=== PATIENT | female | born 1940 | race Caucasian/White ===

== ENCOUNTER 2017-03-24 17:30 | Emergency (ER) | payer MEDICARE, OTHER, MEDICAID ==
[2017-03-24] MEDS ORDERED: Acetaminophen 325 MG Tab PO PRN (17:51)
[2017-03-24] MEDS ORDERED: Sodium Chloride 0.9% 10 ML Syringe FLUSH PRN (17:51)
--- NOTE | 2017-03-24 17:51 | EDM.PDOC ---
ED HPI GENERAL MEDICAL PROBLEM - General Chief Complaint: General Stated Complaint: leukocytosis, fatigue Time Seen by Provider: 03/24/17 17:30 Source of Information: Reports: Patient, Penitentiary Records (Limited), Old Records ([facility] EMR. No paper hospital chart available.) History Limitations: Reports: Altered Mental Status - History of Present Illness INITIAL COMMENTS - FREE TEXT/NARRATIVE: The patient was brought to the emergency room via transport vehicle from [facility] in [place] for nonspecific increased anorexia, confusion, sedation, etc. with decreased oral intake especially during the last 24-48 hours and symptoms starting about one week ago. Patient normally does not have excellent oral intake secondary to her previous CVA and chronic illnesses. Her regular provider, DAYTON Yu, from [facility] in [place], the daughter her CBC this morning with elevated WBCs 22.4 and no other blood available to be collected at the time. The patient is an extremely poor historian secondary to her baseline organic brain syndrome and current symptoms. No apparent recent history of chest pain, anginal complaints, fever, dyspnea, abdominal pain, etc. Onset: Gradual Duration: Week(s): (As above), Getting Worse Improves with: Reports: None Worsens with: Reports: None Context: Reports: Other (As above) Associated Symptoms: Reports: Confusion (Increased), Loss of Appetite, Malaise. Denies: Chest Pain, Cough, Diaphoresis, Fever/Chills, Nausea/Vomiting Treatments BUFFER COPPER: Reports: Other (see below) (None) - Related Data Allergies Allergy/AdvReac Type Severity Reaction Status Date / Time bupropion Allergy Cannot Verified 03/24/17 19:09 Remember [place] And Derivatives Allergy unknown Verified 03/24/17 19:09 clindamycin HCl Allergy Cannot Verified 03/24/17 19:09 [From Cleocin] Remember clindamycin palmitate HCl Allergy Cannot Verified 03/24/17 19:09 [From Cleocin] Remember clindamycin phosphate Allergy Cannot Verified 03/24/17 19:09 [From Cleocin] Remember erythromycin base Allergy Hives Verified 03/24/17 19:09 [Erythromycin Base] levodopa Allergy unknown Verified 03/24/17 19:09 levofloxacin [From Levaquin] Allergy Rash Verified 03/24/17 19:09 nitrofurantoin Allergy Cannot Verified 03/24/17 19:09 macrocrystalline Remember [From Macrodantin] Penicillins Allergy Hives Verified 03/24/17 19:09 Phenothiazines Allergy Cannot Verified 03/24/17 19:09 Remember rice Allergy unknown Verified 03/24/17 19:09 spinach Allergy unknown Verified 03/24/17 19:09 tetracycline [Tetracycline] Allergy Rash Verified 03/24/17 19:09 Home Meds: Home Meds Folic Acid/Vitamin B Comp W-C [Folbee Plus] 1 tab PO DAILY@99901/09/14 [ History] traZODone 50 mg PO BEDTIME 01/09/14 [History] Acetaminophen [Tylenol Extra Strength] 1,000 mg PO TID@,,12/21/15 [ History] Albuterol/Ipratropium [DuoNeb 3.0-0.5 MG/3 ML] 3 ml INH Q4HR PRN 12/21/15 [ History] Aspirin [Halfprin] 81 mg PO DAILY@99912/21/15 [History] Bisacodyl [Dulcolax] 5 mg PO DAILY PRN 12/21/15 [History] Bisacodyl [Dulcolax] 10 mg RECTAL DAILY PRN 12/21/15 [History] DULoxetine [Cymbalta] 30 mg PO DAILY@99912/21/15 [History] Docusate Sodium/Sennosides [Senna Plus] 1 tab PO BID@999,199912/21/15 [History ] Fluticasone Propionate [Flonase] 2 spray NASBOTH DAILY@99912/21/15 [History] Linaclotide [Linzess] 145 mg PO DAILY@99912/21/15 [History] Magnesium Hydroxide [Milk of Magnesia] 30 ml PO DAILY PRN 12/21/15 [History] Methyl Salicylate/Menthol [Thera-Gesic Plus] 1 applic TOP ASDIRECTED PRN [History] Methyl Salicylate/Menthol [Thera-Gesic Plus] 1 applic TOP BID@999,1999 [History] Non-Formulary Medication [NF Drug] 1 unit PO ASDIRECTED PRN 12/21/15 [History] Omeprazole 20 mg PO DAILY@99912/21/15 [History] guaiFENesin/Dextromethorphan [Tussin Dm Syrup] 10 ml PO Q4HR PRN 12/21/15 [ History] Past Medical History HEENT History: Reports: Allergic Rhinitis, Hard of Hearing Cardiovascular History: Reports: Heart Murmur, Hypertension, PVD, Other (See Below) Other Cardiovascular History: Aortic valve stenosis and mitral valve insufficiency by clinical exam Respiratory History: Reports: Bronchitis, Recurrent, COPD, Other (See Below) Other Respiratory History: O2 dependent COPD Gastrointestinal History: Reports: Chronic Constipation, GERD, Irritable Bowel Syndrome, Other (See Below) Other Gastrointestinal History: Dysphagia Genitourinary History: Reports: Chronic Renal Insuffiency, Urinary Incontinence LMP (Approximate): Menopausal Musculoskeletal History: Reports: Arthritis, Back Pain, Chronic, Fracture, Fibromyalgia, Neck Pain, Chronic, Osteoarthritis, Osteoporosis, Other (See Below ). Denies: Amputation Other Musculoskeletal History: Left humeral fracture and left pelvic ring fracture on 01/06/14; rotator cuff tear, multiple vertebral body compression fractures including the thoracic region; ankle fracture? 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 Psychiatric History: Reports: Addiction, Anxiety, Depression, PTSD, Other (See Below) Other Psychiatric History: Previous history of alcohol abuse Endocrine/Metabolic History: Reports: Osteopenia, Osteoporosis, Vitamin D Deficiency Hematologic History: Reports: Anemia, B12 Deficiency, Other (See Below) Other Hematologic History: Thrombocytopenia Oncologic (Cancer) History: Reports: Lung, Other (See Below) Other Oncologic History: Left-sided lung cancer - Infectious Disease History Infectious Disease History: Reports: MRSA - Past Surgical History Head Surgeries/Procedures: Reports: None HEENT Surgical History: Reports: Adenoidectomy, Cataract Surgery, Oral Surgery, Tonsillectomy, Other (See Below) Other HEENT Surgeries/Procedures: Complete teeth extraction Respiratory Surgical History: Reports: Lung Biopsies, Thoracotomy, Other (See Below) Other Respiratory Surgeries/Procedures: Biopsy, bronchoscopy, and left upper lobe lung resection secondary to lung cancer GI Surgical History: Reports: Appendectomy, Cholecystectomy, Colonoscopy, Other (See Below) Other GI Surgeries/Procedures: Hemorrhoidectomy; Colonoscopy on 01/25/12; laparoscopic cholecystectomy; additional unknown abdominal surgery with large midline abdominal incision by clinical exam Female Surgical History: Reports: Tubal Ligation Musculoskeletal Surgical History: Reports: ORIF, Other (See Below) Other Musculoskeletal Surgeries/Procedures:: ORIF of open ankle fracture? Side - Past Imaging History Past Imaging History: Reports: CAT Scan (CT of the brain on 12/24/15 and 12/21/15 ; CT of the chest on 05/14/14), Ultrasound (Gallbladder ultrasound on 06/07/14), Venous Doppler (Bilateral venous Doppler studies of the lower extremities on ;) Social & Family History - Family History Family Medical History: Unobtainable - Tobacco Use Smoking Status *Q: Never Smoker Second Hand Smoke Exposure: No Second Hand Smoke Education Provided: No - Alcohol Use Alcohol Use History: Yes Days Per Week of Alcohol Use: 0 (Previous alcohol abuse history) Alcohol Use in Last Twelve Months: No - Recreational Drug Use Recreational Drug Use: No - Living Situation & Occupation Living situation: Reports: Extended Care Facility ([facility] in [place]) ED ROS GENERAL - Review of Systems Review Of Systems: ROS reveals no pertinent complaints other than HPI. ED EXAM, GENERAL - Physical Exam Exam: See Below Exam Limited By: Altered Mental Status General Appearance: No Apparent Distress, Lethargic (Mild) Nose: Normal Mucosa, No Blood, Clear Rhinorrhea Throat/Mouth: No Airway Compromise, Other (Dry oral mucosa). No: Normal Teeth ( Complete absent dentition), Dysphagia, Perioral Cyanosis Head: Atraumatic, Normocephalic. No: Facial Swelling, Facial Tenderness Neck: Supple, Non-Tender, Full Range of Motion, Carotid Bruit (Mild Bilateral carotid bruits versus transmitted heart sounds). No: Lymphadenopathy (L), Lymphadenopathy (R), Thyromegaly Respiratory/Chest: No Respiratory Distress, No Accessory Muscle Use, Chest Non- Tender, Decreased Breath Sounds (Significantly diminished breath sounds on left side), Rales (Mild bilateral basilar rales). No: Rhonchi, Wheezing, Pleural Rub , Retractions Cardiovascular: No Edema, No Gallop, No Rub, Tachycardia (Regular rhythm), Systolic Murmur (1/6 CARLIE at the aortic and mitral valves). No: Gallop/S3, Gallop/S4, Friction Rub Peripheral Pulses: 2+: Radial (L), Radial (R), Dorsalis Pedis (L), Dorsalis Pedis (R) GI/Abdominal: Normal Bowel Sounds, Soft, No Organomegaly, No Distention, No Abnormal Bruit, No Mass, Pelvis Stable, Tender (Possible mild suprapubic tenderness). No: Guarding, Rebound (Female) Exam: Deferred Rectal (Female) Exam: Deferred Back Exam: Decreased Range of Motion (Secondary to arthritis and previous CVA). No: CVA Tenderness (L), CVA Tenderness (R), Muscle Spasm, Paraspinal Tenderness, Vertebral Tenderness Extremities: Non-Tender, No Pedal Edema, Normal Capillary Refill, Limited Range of Motion (With significant contractures in the left arm and left leg). No: Pedal Edema, Jeannine's Sign Neurological: Confused (Somewhat increased by history as above), Other ( Negative Babinski's, complete neurological exam not possible, stable severe left hemiparesis) Psychiatric: Normal Affect, Normal Mood Skin Exam: No: Diaphoretic, Ecchymosis, Lymphangitis, Wound/Incision Lymphatic: No Adenopathy EKG INTERPRETATION EKG Date: 03/24/17 Time: 19:27 Rhythm: Other (Sinus tachycardia) Rate (Beats/Min): 113 [place]: Normal (Left versus neutral cardiac axis) P-Wave: Enlarged (Diffuse biphasic P waves) QRS: Normal (Yours interval of 0.07 seconds representing repolarization changes) ST-T: Normal QT: Normal VA/PQ Interval: 0.19 seconds with poor R-wave progression in the anterior leads Comparison: No Change (12/21/15) EKG Interpretation Comments: 1. No acute ischemic changes 2. Probable left atrial enlargement 3. Sinus tachycardia 4. Noisy baseline Course - Vital Signs Last Recorded V/S: Last Vital Signs Temp 37.2 C 03/24/17 19:30 Pulse 109 H 03/24/17 20:30 Resp 33 H 03/24/17 20:30 BP 124/60 03/24/17 20:30 Pulse Ox 93 L 03/24/17 20:30 Vital Signs - 24 hr 03/24/17 03/24/17 03/24/17 17:30 18:15 18:29 Temperature [ 36.8 C Temporal] Pulse, Peripheral [ Pulse Oximetry] Pulse, 78 114 H 113 H Peripheral [ Right Brachial] Respiratory 30 H 33 H 33 H Rate Blood Pressure 142/81 H 130/56 L 136/64 [Left Upper Arm ] O2 Sat by Pulse 88 L 88 L 90 L Oximetry 03/24/17 03/24/17 03/24/17 18:45 19:00 19:30 Temperature [ 37.2 C 37.2 C Temporal] Pulse, 115 H 111 H 112 H Peripheral [ Pulse Oximetry] Pulse, Peripheral [ Right Brachial] Respiratory 36 H 34 H 33 H Rate Blood Pressure 131/54 L 125/41 L 132/47 L [Left Upper Arm ] O2 Sat by Pulse 92 L 92 L 94 L Oximetry 03/24/17 03/24/17 20:00 20:30 Temperature [ Temporal] Pulse, 107 H 109 H Peripheral [ Pulse Oximetry] Pulse, Peripheral [ Right Brachial] Respiratory 33 H Rate Blood Pressure 118/67 124/60 [Left Upper Arm ] O2 Sat by Pulse 93 L Oximetry - Orders/Labs/Meds Orders: Active Orders 24 hr Category Date Time Status Cardiac Monitoring [RC] CONTINUOUS Care 03/24/17 17:54 Active Communication Order [RC] ROUTINE Care 03/24/17 17:54 Active EKG Documentation Completion [RC] ASDIRECTED Care 03/24/17 17:54 Active Oxygen Therapy, ED [RC] CONTINUOUS Care 03/24/17 17:54 Active Peripheral IV Care [RC] . DIRECTED Care 03/24/17 17:54 Active Pulse Oximetry [RC] CONTINUOUS Care 03/24/17 17:54 Active Up With Assistance [RC] ASDIRECTED Care 03/24/17 17:54 Active Nothing Per Oral Diet [DIET] Diet 03/24/17 Breakfast Active Chest 1V Frontal [CR] Stat Exams 03/24/17 17:54 Taken CULTURE BLOOD [BC] Stat Lab 03/24/17 19:01 Received CULTURE SPUTUM + SMEAR [RM] Urgent Lab 03/24/17 17:54 Uncollected CULTURE URINE [RM] Stat Lab 03/24/17 18:20 Received Acetaminophen [Tylenol] Med 03/24/17 17:51 Active 650 mg PO Q4H PRN Lactated Ringers [Ringers, Lactated] 1,000 ml Med 03/24/17 20:00 Active IV ASDIRECTED Sodium Chloride 0.9% [Saline Flush] Med 03/24/17 17:51 Active 10 ml FLUSH ASDIRECTED PRN cefTRIAXone [Rocephin] Med 03/24/17 18:22 Active 2 gm IVPUSH Q24H Blood Culture x2 Reflex Set [OM.PC] Stat Oth 03/24/17 17:54 Ordered Obtain Past Medical Record [OM.PC] Stat Oth 03/24/17 17:54 Active Peripheral IV Insertion Adult [OM.PC] Stat Oth 03/24/17 17:54 Ordered Resuscitation Status Routine Resus Stat 03/24/17 17:51 Ordered EKG 12 Lead [EK] Stat Ther 03/24/17 17:54 Ordered Medication Orders Acetaminophen (Tylenol) 650 mg PO Q4H PRN PRN Reason: Pain/Fever Ceftriaxone Sodium (Rocephin) 2 gm IVPUSH Q24H SUNNY Last Admin: 03/24/17 19:00 Dose: 2 gm Lactated Ringer's (Ringers, Lactated) 1,000 mls @ 100 mls/hr IV ASDIRECTED SUNNY Last Admin: 03/24/17 20:16 Dose: 100 mls/hr Sodium Chloride (Saline Flush) 10 ml FLUSH ASDIRECTED PRN PRN Reason: Keep Vein Open Labs: Laboratory Tests 03/24/17 03/24/17 03/24/17 Range/Units 18:00 18:00 18:15 D-Dimer, Quantitative 2030 H (0-400) ng/mL Sodium 144 D (136-145) mmol/L Potassium 3.9 (3.5-5.1) mmol/L Chloride 108 H (98-107) mmol/L Carbon Dioxide 23.9 (21.0-32.0) mmol/L BUN 26 H (7-18) mg/dL Creatinine 0.67 (0.51-1.17) mg/dL Est Cr Clr Drug Dosing 61.68 mL/min Estimated GFR (MDRD) > 60 mL/min Glucose 127 H (74-106) mg/dL Lactic Acid 3.4 H (0.4-2.0) mmol/L Calcium 10.3 H (8.5-10.1) mg/dL Magnesium 2.0 (1.8-2.4) mg/dL Total Bilirubin 0.6 (0.2-1.0) mg/dL AST 25 (15-37) U/L ALT 14 (12-78) U/L Alkaline Phosphatase 103 (46-116) IU/L Creatine Kinase 104 (26-308) U/L Creatine Kinase Index 2.0 (0.0-2.5) % CK-MB (CK-2) 2.10 (0.00-3.60) ng/mL Troponin I 0.029 (0.000-0.056) ng/mL NT-Pro-B Natriuret Pep 1516 H (0-125) pg/mL Total Protein 8.9 H (6.4-8.2) g/dL Albumin 3.0 L (3.4-5.0) g/dL TSH, Ultra Sensitive 0.432 (0.358-3.740) mIU/mL Specimen Type Urine Color Urine Appearance Urine pH (5.0-9.0) Ur Specific [place] (1.005-1.030) Urine Protein (NEGATIVE) mg/dL Urine Glucose (UA) (NEGATIVE) mg/dL Urine Ketones (NEGATIVE) mg/dL Urine Occult Blood (NEGATIVE) Urine Nitrite (NEGATIVE) Urine Bilirubin (NEGATIVE) Urine Urobilinogen (0.2-1.0) E.U./dL Ur Leukocyte Esterase (NEGATIVE) Urine RBC /HPF Urine WBC /HPF Ur Epithelial Cells /LPF Urine Bacteria (NONE TO FEW) /HPF 03/24/17 Range/Units 18:20 D-Dimer, Quantitative (0-400) ng/mL Sodium (136-145) mmol/L Potassium (3.5-5.1) mmol/L Chloride (98-107) mmol/L Carbon Dioxide (21.0-32.0) mmol/L BUN (7-18) mg/dL Creatinine (0.51-1.17) mg/dL Est Cr Clr Drug Dosing mL/min Estimated GFR (MDRD) mL/min Glucose (74-106) mg/dL Lactic Acid (0.4-2.0) mmol/L Calcium (8.5-10.1) mg/dL Magnesium (1.8-2.4) mg/dL Total Bilirubin (0.2-1.0) mg/dL AST (15-37) U/L ALT (12-78) U/L Alkaline Phosphatase (46-116) IU/L Creatine Kinase (26-308) U/L Creatine Kinase Index (0.0-2.5) % CK-MB (CK-2) (0.00-3.60) ng/mL Troponin I (0.000-0.056) ng/mL NT-Pro-B Natriuret Pep (0-125) pg/mL Total Protein (6.4-8.2) g/dL Albumin (3.4-5.0) g/dL TSH, Ultra Sensitive (0.358-3.740) mIU/mL Specimen Type Urin[place]ath Urine Color Dark yellow Urine Appearance Cloudy Urine pH 5.5 (5.0-9.0) Ur Specific [place] 1.025 (1.005-1.030) Urine Protein 100 H (NEGATIVE) mg/dL Urine Glucose (UA) Negative (NEGATIVE) mg/dL Urine Ketones Trace H (NEGATIVE) mg/dL Urine Occult Blood Small H (NEGATIVE) Urine Nitrite Negative (NEGATIVE) Urine Bilirubin Small H (NEGATIVE) Urine Urobilinogen 1.0 (0.2-1.0) E.U./dL Ur Leukocyte Esterase Negative (NEGATIVE) Urine RBC 0-5 /HPF Urine WBC 0-5 /HPF Ur Epithelial Cells Moderate H /LPF Urine Bacteria Many H (NONE TO FEW) /HPF Urine specimen set up for culture and sensitivity Blood culture 1 collected Meds: Medications Generic Name Dose Route Start Last Admin Trade Name Freq PRN Reason Stop Dose Admin Acetaminophen 650 mg 03/24/17 17:51 Tylenol PO Q4H PRN Pain/Fever Ceftriaxone Sodium 2 gm 03/24/17 18:22 03/24/17 19:00 Rocephin IVPUSH 2 gm Q24H SUNNY Administration Lactated Ringer's 1,000 mls @ 100 mls/hr 03/24/17 20:00 03/24/17 20:16 Ringers, Lactated IV 100 mls/hr ASDIRECTED SUNNY Administration Sodium Chloride 10 ml 03/24/17 17:51 Saline Flush FLUSH ASDIRECTED PRN Keep Vein Open Discontinued Medications Generic Name Dose Route Start Last Admin Trade Name Freq PRN Reason Stop Dose Admin Lactated Ringer's 1,000 mls @ 999 mls/hr 03/24/17 18:53 03/24/17 19:06 Ringers, Lactated IV 03/24/17 19:53 999 mls/hr .BOLUS ONE Administration - Radiology Interpretation Free Text/Narrative:: Warehouse Delivery Driver shows sinus tachycardia with average heart rates in the 110s with no ectopy or arrhythmia Chest x-ray, portable, shows moderate COPD changes with complete opacification of the left lung significantly worse from previous evaluations with status post left upper lobe resection and moderate prominence of the proximal aortic arch. No direct pneumothorax Departure - Departure Time of Disposition: 21:00 Disposition: DC/Tfer to Acute Hospital 02 Condition: Poor Clinical Impression: Dehydration, Organic brain syndrome, Need for comfort care, Dyslipidemia, Peptic reflux disease, Lactic acid blood increased, D-dimer, elevated, Hypoalbuminemia, Hypercalcemia, Hyperglycemia Leukocytosis Qualifiers: Leukocytosis type: bandemia Qualified Code(s): D72.825 - Bandemia CVA (cerebral vascular accident) Qualifiers: CVA mechanism: unspecified Qualified Code(s): I63.9 - Cerebral infarction, unspecified Osteoarthritis Qualifiers: Osteoarthritis location: multiple joints Osteoarthritis type: primary Qualified Code(s): M15.0 - Primary generalized (osteo)arthritis Hypertension Qualifiers: Hypertension type: essential hypertension Qualified Code(s): I10 - Essential ( primary) hypertension COPD (chronic obstructive pulmonary disease) Qualifiers: COPD type: emphysema Emphysema type: panlobular Qualified Code(s): J43.1 - Panlobular emphysema CHF (congestive heart failure) Qualifiers: Congestive heart failure type: unspecified congestive heart failure type Congestive heart failure chronicity: acute Qualified Code(s): I50.9 - Heart failure, unspecified - Discharge Information Referrals: Jamila Clemens NP [Primary Care Provider] - Forms: ED Department Discharge, Interfacility Transfer [facility] - Problem List & Annotations (1) Leukocytosis SNOMED Code(s): 294738315 Code(s): D72.829 - ELEVATED WHITE BLOOD CELL COUNT, UNSPECIFIED Status: Acute Priority: High Current Visit: Yes Onset Date: 03/24/17 Annotation/ Comment:: Leukocytosis with possibility of sepsis with IV Rocephin initiated in the emergency room. Note multiple allergies to antibiotics. Consider additional IV Flagyl therapy secondary to history of dysphagia, however no known aspiration. Only one blood culture was able to be obtained with difficult blood draw. Note complete left lung opacification with possibility of pneumonia versus large PE. Telephone consultation initially with the patient's brother and Matthew ROMERO, at 19:40 hours with various therapeutic options discussed. Subsequent telephone consultation at 19:[address] Whitman, hospitalist at [facility] in [place], who does accept the patient for direct admission, with no further treatment recommendations given. Some delay in patient transfer without sequelae secondary to ambulance availability. Ambulance transfer with television newscast director accompaniment. Prognosis extremely poor with consideration of initiation of hospice care depending on further workup, clinical course, etc. Qualifiers: Leukocytosis type: bandemia Qualified Code(s): D72.825 - Bandemia (2) D-dimer, elevated SNOMED Code(s): 323500637 Code(s): R79.89 - OTHER SPECIFIED ABNORMAL FINDINGS OF BLOOD CHEMISTRY Status: Acute Priority: High Current Visit: Yes Onset Date: 03/24/17 Annotation/Comment:: Initially elevated d-dimer elevation, however no direct clinical evidence of DVT or PE, however note complete opacification of her left lung, previous history of left upper pulmonary lobeectomy, and history of lung cancer. Poor IV access in our facility not amenable to CTA of the chest at this time (3) Lactic acid blood increased SNOMED Code(s): 1477653 Code(s): R79.89 - OTHER SPECIFIED ABNORMAL FINDINGS OF BLOOD CHEMISTRY Status: Acute Priority: High Current Visit: Yes Onset Date: 03/24/17 Annotation/Comment:: Possibility of sepsis either from pneumonia or urosepsis. Continue to observe mostly with serial lactic acid levels recommended as per standard protocol (4) Dehydration SNOMED Code(s): 85411167 Code(s): E86.0 - DEHYDRATION Status: Acute Priority: High Current Visit : Yes Onset Date: 03/24/17 Annotation/Comment:: Lactated Ringer's IV 500 mL bolus given in the emergency room with continuation of IV fluids at 100 mL per hour thereafter. (5) Need for comfort care SNOMED Code(s): 732826053 Code(s): BYS2884 - Status: Chronic Priority: Medium Current Visit: Yes Annotation/Comment:: Long-term prognosis poor. Patient's current condition is guarded. Continue comfort care (6) COPD (chronic obstructive pulmonary disease) SNOMED Code(s): 34030430 Code(s): J44.9 - CHRONIC OBSTRUCTIVE PULMONARY DISEASE, UNSPECIFIED Status : Chronic Priority: Medium Current Visit: Yes Annotation/Comment:: No significant wheezing or rhonchi on arrival. Note O2 dependent COPD Qualifiers: COPD type: emphysema Emphysema type: panlobular Qualified Code(s): J43.1 - Panlobular emphysema (7) CVA (cerebral vascular accident) SNOMED Code(s): 630436989 Code(s): I63.9 - CEREBRAL INFARCTION, UNSPECIFIED Status: Chronic Priority: Medium Current Visit: Yes Annotation/Comment:: Previous history of CVA with persistent left-sided hemiparesis, dysarthria, contractures, etc. No direct indication of significant change in her neurological status by history other than some possible mild lethargy secondary to current infection Qualifiers: CVA mechanism: unspecified Qualified Code(s): I63.9 - Cerebral infarction, unspecified (8) Dyslipidemia SNOMED Code(s): 494011734 Code(s): E78.5 - HYPERLIPIDEMIA, UNSPECIFIED Status: Chronic Priority: Medium Current Visit: Yes Annotation/Comment:: Not currently under therapy. Note comfort care. (9) Hypertension SNOMED Code(s): 91453223 Code(s): I10 - ESSENTIAL (PRIMARY) HYPERTENSION Status: Chronic Priority : Medium Current Visit: Yes Annotation/Comment:: Blood pressures were under good control in the emergency room. Continue to observe closely Qualifiers: Hypertension type: essential hypertension Qualified Code(s): I10 - Essential (primary) hypertension (10) Organic brain syndrome SNOMED Code(s): 306779146 Code(s): F09 - UNSP MENTAL DISORDER DUE TO KNOWN PHYSIOLOGICAL CONDITION Status: Chronic Priority: Medium Current Visit: Yes Annotation/Comment:: Known organic brain syndrome with previous CVA and alcohol abuse with possibility of concomitant alcohol-induced encephalopathy (11) Osteoarthritis SNOMED Code(s): 649426138 Code(s): M19.90 - UNSPECIFIED OSTEOARTHRITIS, UNSPECIFIED SITE Status: Chronic Priority: Medium Current Visit: Yes Annotation/Comment:: Stable by history with known significant contractures as above Qualifiers: Osteoarthritis location: multiple joints Osteoarthritis type: primary Qualified Code(s): M15.0 - Primary generalized (osteo)arthritis (12) Peptic reflux disease SNOMED Code(s): 29020005 Code(s): K21.9 - GASTRO-ESOPHAGEAL REFLUX DISEASE WITHOUT ESOPHAGITIS Status: Chronic Priority: Medium Current Visit: Yes Annotation/Comment:: Stable by history (13) CHF (congestive heart failure) SNOMED Code(s): 69746131 Code(s): I50.9 - HEART FAILURE, UNSPECIFIED Status: Acute Current Visit: Yes Onset Date: 03/24/17 Annotation/Comment:: No known recent chest pain or anginal complaints. Note the BNP elevation and mild change in troponin I secondary to CHF with otherwise normal cardiac enzymes and EKG . IV fluids were given with caution secondary to patient's dehydration. Consider IV Lasix therapy. Note comfort care Qualifiers: Congestive heart failure type: unspecified congestive heart failure type Congestive heart failure chronicity: acute Qualified Code(s): I50.9 - Heart failure, unspecified (14) Hypoalbuminemia SNOMED Code(s): 273823402 Code(s): E88.09 - OTH DISORDERS OF PLASMA-PROTEIN METABOLISM, NEC Status: Acute Current Visit: Yes Annotation/Comment:: Hypoalbuminemia with additional hyperproteinemia? Note baseline poor oral intake and continue to observe closely (15) Hypercalcemia SNOMED Code(s): 61887484 Code(s): E83.52 - HYPERCALCEMIA Status: Acute Priority: Medium Current Visit: Yes Onset Date: 03/24/17 Annotation/Comment:: Note history of lung cancer. IV fluids for now. Observe closely (16) Hyperglycemia SNOMED Code(s): 08935843 Code(s): R73.9 - HYPERGLYCEMIA, UNSPECIFIED Status: Acute Priority: Medium Current Visit: Yes Onset Date: 03/24/17 Annotation/Comment:: Elevated random glucose today. Consider glycosylated hemoglobin (17) UTI (urinary tract infection) SNOMED Code(s): 56686694 Code(s): N39.0 - URINARY TRACT INFECTION, SITE NOT SPECIFIED Status: Acute Priority: High Current Visit: Yes Onset Date: 03/24/17 Annotation/ Comment:: High-dose IV Rocephin given as above. Possibility of concomitant urosepsis as above. Qualifiers: Hematuria presence: without hematuria - Problem List Review Problem List Initiated/Reviewed/Updated: Yes - My Orders Last 24 Hours: My Active Orders 03/24/17 17:51 Acetaminophen [Tylenol] 650 mg PO Q4H PRN Sodium Chloride 0.9% [Saline Flush] 10 ml FLUSH ASDIRECTED PRN Resuscitation Status Routine 12/21/17 17:54 Cardiac Monitoring [RC] CONTINUOUS Communication Order [RC] ROUTINE EKG Documentation Completion [RC] ASDIRECTED Oxygen Therapy, ED [RC] CONTINUOUS Peripheral IV Care [RC] . DIRECTED Pulse Oximetry [RC] CONTINUOUS Up With Assistance [RC] ASDIRECTED Chest 1V Frontal [CR] Stat CULTURE SPUTUM + SMEAR [RM] Urgent Blood Culture x2 Reflex Set [OM.PC] Stat Obtain Past Medical Record [OM.PC] Stat Peripheral IV Insertion Adult [OM.PC] Stat EKG 12 Lead [EK] Stat 03/24/17 18:20 CULTURE URINE [RM] Stat 03/24/17 18:22 cefTRIAXone [Rocephin] 2 gm IVPUSH Q24H 03/24/17 19:01 CULTURE BLOOD [BC] Stat 03/24/17 20:00 Lactated Ringers [Ringers, Lactated] 1,000 ml IV ASDIRECTED 03/24/17 Breakfast Nothing Per Oral Diet [DIET] - Assessment/Plan Last 24 Hours: My Active Orders 03/24/17 17:51 Acetaminophen [Tylenol] 650 mg PO Q4H PRN Sodium Chloride 0.9% [Saline Flush] 10 ml FLUSH ASDIRECTED PRN Resuscitation Status Routine 03/24/17 17:54 Cardiac Monitoring [RC] CONTINUOUS Communication Order [RC] ROUTINE EKG Documentation Completion [RC] ASDIRECTED Oxygen Therapy, ED [RC] CONTINUOUS Peripheral IV Care [RC] . DIRECTED Pulse Oximetry [RC] CONTINUOUS Up With Assistance [RC] ASDIRECTED Chest 1V Frontal [CR] Stat CULTURE SPUTUM + SMEAR [RM] Urgent Blood Culture x2 Reflex Set [OM.PC] Stat Obtain Past Medical Record [OM.PC] Stat Peripheral IV Insertion Adult [OM.PC] Stat EKG 12 Lead [EK] Stat 03/24/17 18:20 CULTURE URINE [RM] Stat 03/24/17 18:22 cefTRIAXone [Rocephin] 2 gm IVPUSH Q24H 03/24/17 19:01 CULTURE BLOOD [BC] Stat 03/24/17 20:00 Lactated Ringers [Ringers, Lactated] 1,000 ml IV ASDIRECTED 03/24/17 Breakfast Nothing Per Oral Diet [DIET] Assessment:: As above Plan: As above.
[2017-03-24] MEDS ORDERED: Levofloxacin/Dextrose 5%-Water 500 MG in Premix Bag 1 BAG IV SCH (18:00)
[2017-03-24] MEDS ORDERED: cefTRIAXone 2 GM Vial IVPUSH SCH (18:22)
[2017-03-24 18:46] LABS: CHLORIDE,CL 108 mmol/L (98-107); SODIUM,NA 144 mmol/L (136-145)
[2017-03-24] MEDS ORDERED: Lactated Ringers 1,000 ML IV ONE (18:53)
[2017-03-24] MEDS ORDERED: Lactated Ringers 1,000 ML IV SCH (20:00)
[2017-03-24 20:42] VITALS: BP 124/60
== END 2017-03-24 21:00 ==
LOC: LL.ED 17:30
DX: I63.9 Cerebral infarction, unspecified (principal); E86.0 Dehydration; D72.825 Bandemia; F09 Unspecified mental disorder due to known physiological condition; E78.5 Hyperlipidemia, unspecified; K21.9 Gastro-esophageal reflux disease without esophagitis; E83.52 Hypercalcemia; R73.9 Hyperglycemia, unspecified; R74.0 Nonspecific elevation of levels of transaminase and lactic acid dehydrogenase [LDH]; I13.0 Hypertensive heart and chronic kidney disease with heart failure and stage 1 through stage 4 chronic kidney disease, or unspecified chronic kidney disease; I50.9 Heart failure, unspecified; N18.9 Chronic kidney disease, unspecified; J43.1 Panlobular emphysema; G30.9 Alzheimer's disease, unspecified; F32.9 Major depressive disorder, single episode, unspecified; Z79.82 Long term (current) use of aspirin; Z79.899 Other long term (current) drug therapy; Z88.0 Allergy status to penicillin; Z88.1 Allergy status to other antibiotic agents; Z88.8 Allergy status to other drugs, medicaments and biological substances; Z91.018 Allergy to other foods
CPT/HCPCS: 36415; 51702; 71010; 80053; 81001; 82550; 82553; 83605; 83735; 83880; 84443; 84484; 85379; 87040; 87086; 87088; 87804; 93005; 94640; 96361; 96374; 99285; J0696; J7120; 87186; 93010